=== PATIENT | male | born 1990 | race Two or more races ===

== ENCOUNTER → 2025-03-05 10:36 | Outpatient (CLI) | payer OTHER, SELFPAY | LOC: SL 10:36 | PROVIDERS: PCP Specialist; Visit Provider Specialist | DX: G47.33 Obstructive sleep apnea (adult) (pediatric) (principal) | CPT/HCPCS: G0399 ==

== ENCOUNTER 2025-04-16 13:24 | Outpatient (CLI) | payer OTHER, SELFPAY ==
--- OUTSIDE RECORDS SUMMARY | 2025-04-16 13:26 | XMS_ITS | Data Portability ---
Author Organization [facility] KELLY Matias [place] CLOSED Address [address] [place] [address] Assessment Encounter Date Assessment Date Assessment LastModified by Organization Details LastModified Time 04/30/2020 04/30/2020 SURGERY DATE: 04/30/2020 PREOPERATIVE DIAGNOSIS: Phimosis POSTOPERATIVE DIAGNOSIS: Phimosis PROCEDURE: Circumcision. ANESTHESIA: General with circumferential penile block. SURGEON: Isaac Do MD BRIEF HISTORY: The patient is a young uncircumcised gentleman who had developed an area of tight phimosis causing discomfort with erections. He also has a tethering frenulum area of the foreskin, which is uncomfortable as well. He was seen in consultation and requested circumcision. Risks were discussed including bleeding and infection. He understood and wished to proceed. OPERATIVE NOTE: After satisfactory general anesthesia, his penis and genitals were prepped and draped in standard fashion. The foreskin was brought over the glans and the penis placed on relative stretch. A circumferential jennifer was made circumferentially with a marking pen at the coronal margin. This was then retracted and a subcoronal incision made circumferentially down the subcutaneous tissue. This was then brought back over the glans and the proximal incision made circumferentially. These lines were then connected through the subcutaneous tissue with electrocautery and foreskin removed cautiously. He had an area of bleeding near the frenulum glanular side, which required some cauterization. Hemostasis was achieved and very conservative point coagulation was performed throughout the shaft of the penis as necessary for adequate hemostasis. The skin edge was then brought back together with interrupted 3-0 chromic at each quadrant and interrupted sutures placed as necessary for nice aesthetic closure circumferentially. Neosporin was applied circumferentially, 20 mL of Marcaine was placed s circumferentially at the base of the penis subcutaneously. The patient tolerated the procedure well, was awakened and transferred to postoperative recovery in stable condition. [email or web address] Not available 05/01/2020 01:17:48 Plan of Treatment Reminders Order Date Submit Date Provider Last Modified By Organization Details Last Modified Time Details Appointments None record ed. Lab urinal ysis, dipsti ck, auto 020 04/04/20 20 [facility], [address], [place], [address], 0 15:52:56 Referral None record ed. Procedures None record ed. Surgeries None record ed. Imaging None record ed. Medication Orders None record ed. Patient TargetsNo targets recorded. Patient InstructionsNo instructions recorded. Reason for Referral None Reported. Results Created Date Observation Date Name Description Value Unit Range Abnormal Flag Note LastModifiedBy Organization Detail LastModifiedTime 04/04/20 20 04/04/2020 urina lysis , dipst ick, auto Unknown Analyte Yellow Not Available [facility] [address], [place], [address], 04/04/2020 11:24:44 04/04/20 20 04/04/2020 urina lysis , dipst ick, auto Unknown Analyte Clear Not Available [facility] [address], [place], [address], 04/04/2020 11:24:44 04/04/20 20 04/04/2020 urina lysis , dipst ick, auto Unknown Analyte 1.010 Not Available [facility] [address] [facility] [address], [place], [address], 04/04/2020 11:24:44 04/04/20 20 04/04/2020 urina lysis , dipst ick, auto Unknown Analyte 6.0 Not Available [facility] [address], [place], [address], 04/04/2020 11:24:44 04/04/20 20 04/04/2020 urina lysis , dipst ick, auto Unknown Analyte Negati ve Not Available [facility] [address], [place], [address], 04/04/2020 11:24:44 04/04/20 20 04/04/2020 urina lysis , dipst ick, auto Unknown Analyte Negati ve Not Available [facility] [address], [place], [address], 04/04/2020 11:24:44 04/04/20 20 04/04/2020 urina lysis , dipst ick, auto Unknown Analyte Negtiv e Not Available [facility] [address], [place], [address], 04/04/2020 11:24:44 04/04/20 20 04/04/2020 urina lysis , dipst ick, auto Unknown Analyte Normal Not Available [facility] [address], [place], [address], 04/04/2020 11:24:44 04/04/20 20 04/04/2020 urina lysis , dipst ick, auto Unknown Analyte Negati ve Not Available [facility] [address], [place], [address], 04/04/2020 11:24:44 04/04/20 20 04/04/2020 urina lysis , dipst ick, auto Unknown Analyte Normal Not Available [facility] [address], [place], [address], 04/04/2020 11:24:44 04/04/20 20 04/04/2020 urina lysis , dipst ick, auto Unknown Analyte Negati ve Not Available [facility] [address], [place], [address], 04/04/2020 11:24:44 04/04/20 20 04/04/2020 urina lysis , dipst ick, auto Unknown Analyte Negati ve Not Available [facility] [address], [place], [address], 04/04/2020 11:24:44 04/04/20 20 04/04/2020 urina lysis , dipst ick, auto Unknown Analyte Clean Catch Not Available [facility] [address], [place], [address], 04/04/2020 11:24:44 04/04/20 20 04/04/2020 urina lysis , dipst ick, auto Unknown Analyte Automa gabbie Not Available [facility] [address], [place], [address], 04/04/2020 11:24:44 04/04/20 20 04/04/2020 urina lysis , dipst ick, auto Unknown Analyte 1.003 - 1.035 Not Available [facility] [address], [place], [address], 04/04/2020 11:24:44 04/04/20 20 04/04/2020 urina lysis , dipst ick, auto Unknown Analyte 5.0 - 8.0 Not Available [facility] [address], [place], [address], 04/04/2020 11:24:44 04/04/20 20 04/04/2020 urina lysis , dipst ick, auto Unknown Analyte Negati ve Not Available [facility] [address], [place], [address], 04/04/2020 11:24:44 04/04/2004/04/2020 urina lysis , dipst ick, auto Unknown Analyte Negati ve Not Available [facility] [address], [place], [address], 04/04/2020 11:24:44 04/04/20 20 04/04/2020 urina lysis , dipst ick, auto Unknown Analyte Negati ve - Trace Not Available [facility] [address], [place], [address], 04/04/2020 11:24:44 04/04/20 20 04/04/2020 urina lysis , dipst ick, auto Unknown Analyte Normal Not Available [facility] [address], [place], [address], 04/04/2020 11:24:44 04/04/2004/04/2020 urina lysis , dipst ick, auto Unknown Analyte Negati ve Not Available [facility] [address], [place], [address], 04/04/2020 11:24:44 04/04/20 20 04/04/2020 urina lysis , dipst ick, auto Unknown Analyte Normal - 1mg/dl Not Available [facility] [address] [facility] [address], [place], [address], 04/04/2020 11:24:44 04/04/20 20 04/04/2020 urina lysis , dipst ick, auto Unknown Analyte Negati ve Not Available [facility] [address] [facility] [address], [place], [address], 04/04/2020 11:24:44 04/04/20 20 04/04/2020 urina lysis , dipst ick, auto Unknown Analyte Negati ve Not Available [facility] [address], [place], [address], 04/04/2020 11:24:44 04/28/20 20 04/30/2020 SARS CoV 2 RNA (COVI D-19) , QL, 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 SEE SCANN ED REFER ENCE LAB REPOR T. PRINT ED REPOR T RECEI KAYDEN IN THE LABOR ATORY : 0 Not Available [facility] [address] [place], [address], 04/30/2020 10:09:21 Result Notes None recorded. Medical Equipment None Reported. Allergies No known drug allergies Medications Name Sig Start Date Stop Date Status Note LastModified by Organization Details LastModified Time clonidine HCl 0.1 mg tablet active Not Available Not Available No t Available sulfamethoxazole 800 mg-trimethoprim 160 mg tablet active Not Available Not Availabl e Not Available benzonatate 100 mg capsule active Not Available Not Available Not Available hydrocodone 7.5 mg-acetaminophen 325 mg tablet active Not Available Not Availabl e Not Available sertraline 25 mg tablet active Not Available Not Available Not Available mirtazapine 15 mg tablet active Not Available Not Available Not Available omeprazole active Not Available Not Av ailable Not Available Vitals Date Recorded Body height Body mass index (BMI) Body weight Provider Name and Address Organization Details Last Updated DateTime 04/04/2020 175.26 cm 21.4 kg/m2 42417.89 g Teena Aguirre [facility] 04/04/2020 11:23:56 Social History Question Answer Notes LastModified by Organizat ion Details LastModified Time Tobacco Smoking Status Never Smoker Teena Aguirre [facility] 04/04/2020 11:24:12 How Much Tobacco Do You Chew? None [email or web address] Information not available 04/04/2020 Marital Status Single [email or web address] Informatio n not available 04/04/2020 How Much Tobacco Do You Smoke? No [email or web address] Information not available 04/04/2020 Sex: Unknown Functional Status Question Answer Note LastModified by Organization D etails LastModified Time What is your level of alcohol consumption? None [email or web address] Information not available 04/04/2020 Mental Status None recorded. Family History Nothing Reported. Medical History Condition Response Allergies/Hayfever Y Acid Reflux (GERD) Y Past Encounters Encounter ID Performer Location Encounter Start Date Encounter Closed Date Diagnosis/Indication Diagnosis SNOMED-CT Code Diagnosis ICD10 Code Diagnosis Note [id number] ISAAC DO MD [facility] [address] [place] [address] [address] [place] [address] 04/04/2020 11:05:47 04/04/2020 11:51:39 Redundant prepuce and phimosis 677329867 N47.1 With discussed options including just incising the frenulum. Due to the tightness of the mild phimosis he is concerned that he was still having discomfort elsewhere. We had a very long discussion regarding circumcisi on. We discussed risk of bleeding and infection. We discussed convalesce nce. We discussed that likely circumcisi on wound to be the most definitive treatment for both areas of concern. He understand s and wishes to proceed. [id number] ISAAC DO MD SURGERY SCHEDULE [address] [place] [address] 04/30/2020 08:28:14 04/30/2020 08:30:05 Health Concerns Section Related Observation LastModified by Organization Detai ls LastModified Time None Recorded Concern Status LastModified by Organization Details LastModified Time None Recorded Advance Directives Directive None Recorded Payers Insurance Date Sequence Insurance Name Policy Number Policy Queen Covered Member ID Queen Member ID Guarantor Name 11/25/2022 1 [employer] [id number] Yadiel Kamara [id number] Yadiel Kamara Notes Date Note Type Note Provider Name and Address Organization Details Recorded Time 04/04/2020 text/html Patient is a you ng 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 He states that the foreskin is also circumferentially tight with erections. He has had no urinary infections. He's had no significant trauma. ISAAC DO MD [facility] [place], [address], [facility] 04/04/2020 15:53:21
[2025-04-16 13:42] VITALS: BMI 23.6
[2025-04-16 13:52] LABS: Basophils % 0.5 % (0.1-2.0); Eosinophils # 0.2 Kmm3 (0.0-0.4); Eosinophils % 2.7 % (0.1-12.0); Hemoglobin 16.2 g/dL (14.1-18.0); Immature Granulocytes # 0.01 10^3uL; Immature Granulocytes % 0.1 %; Lymphocytes # 2.9 K/mm3 (0.7-4.5); Lymphocytes % 33.5 % (10-50); Mean Corpuscular HGB Conc 33.8 g/dL (31.8-35.4); Mean Corpuscular Hemoglobin 28.7 pg (27.0-31.2); Mean Platelet Volume 9.4 fl (7.4-10.4); Monocytes # 0.7 K/mm3 (0.1-1.0); Monocytes % 8.2 % (1.7-9.3); Neutrophils # 4.7 K/mm3 (1.8-7.8); Nucleated Red Blood Cells # 0 10^3/uL; Nucleated Red Blood Cells % 0 %; Platelet Count 319 K/mm3 (142-424); Red Blood Count 5.65 M/mm3 (4.60-6.20); Red Cell Distribution Width 12.7 % (11.5-17.5); Red Cell Distribution Width-SD 39.1 fL; White Blood Count 8.5 K/mm3 (4.8-10.8)
[2025-04-16 13:58] LABS: Chloride 99 mmol/L (98-107); Potassium 4.2 mmoL/L (3.5-5.1); Sodium 138 mmol/L (136-145)
[2025-04-16 14:01] LABS: Anion Gap 14.2 mEq/L (5-15); Blood Urea Nitrogen 29 mg/dl (9-20); Carbon Dioxide 29 mmol/L (22.0-30.0); Creatinine Clearance Estimated 99 mL/min (50-200); Estimated Glomerular Filt Rate 78 ml/min (>60); GFR (African American) 94 ML/MIN (>60)
[2025-04-16 14:02] LABS: Calcium 9.1 mg/dl (8.4-10.2); Glucose 95 mg/dl (74-100)
== END 2025-04-16 23:59 | disposition home or self-care (01) ==
LOC: PREOP 13:25
PROVIDERS: Visit Provider Orthopaedic Surgery
DX: Z01.812 Encounter for preprocedural laboratory examination (principal)
CPT/HCPCS: 80048; 85025

== ENCOUNTER 2025-04-17 09:47 | Day surgery (SDC) | payer OTHER, SELFPAY ==
[2025-04-16 13:49] VITALS: BMI 23.6
[2025-04-17] VITALS (9 sets, daily range): BP systolic 116–135; BP diastolic 61–97; PULSE 75–102; RESP 14–18; TEMP 36.1–36.8; O2SAT 87–99
[2025-04-17] MEDS: LACTATED RINGERS 1000ML 1,000 ML 100 ML IV (10:18)
--- NOTE | 2025-04-17 10:23 | EXP.ANES.CKL ---
[facility] Disclaimer: The information contained in this section may have been updated after the patient was seen, as this information can be updated by other users. Medical History GERD (gastroesophageal reflux disease) Depression Hyperlipidemia Surgical History No significant past surgical history Family History Other Diabetes Hyperlipidemia Thyroid disorder Social History Smoking Status: Never smoker alcohol intake: never substance use type: denies use current occupational status: employed Travel in the last 8 weeks?: Inside the [place] marital status: single caffeine: Yes [facility] Anesthesia Checklist Patient Identification Patient Identification: Verbal (Name & ) Structural Data Admitted From: Home Planned Operative Procedure/s: excision neoplasm l hand Consent for Planned Operative Procedure(s) Verified: Yes NPO Status Verified Time NPO: 00:00 Additional verifications Anesthesia Reactions: No Hx Blood Transfusions: No Blood Transfusion Reaction: No Airway Assessment Mallampati Score:: Class II C-Spine Mobility Assessed: Yes TMJ Mobility Assessed: Yes Dentition: Good Dentition Neurological Assessment Level of Consciousness: Awake, Alert and Appropriate Anesthesia Plan Anesthesia Risk discussed: Yes Anesthesia Plan: Verified ASA Class: II Anesthesia Type: General
[2025-04-17] MEDS: LIDOCAINE 1% W/EPI 1:100,000 20ML VIAL 20 ML (10:55)
[2025-04-17] MEDS: CEFAZOLIN SODIUM 2 GM in 0.9 % SODIUM CHLORIDE 100 ML IV (10:56)
--- NOTE | 2025-04-17 11:20 | EXP.ANES.I ---
[facility] Anesthesia Record Part I Anesthesia Record I Intake, IV Amount: 500 Hydration: Adequate Estimated blood loss (mL): 0 Urine output (mL): 0 Blood Products used (#): none Blood Pressure: 117/62 SaO2: 94 Pulse Rate: 77 Airway Patency: Patent Respiratory Rate: 14 Temperature: 97.0 F Patient is:: Oral/Nasal airway, Stable and Somnolent Stable to PACU at:: 11:16
--- NOTE | 2025-04-17 11:32 | EXP.OP.NOTE ---
Date of procedure: 04/17/25 Pre-op Diagnosis:: Soft tissue mass left hand ( pyogenic granuloma) Post-op Diagnosis:: Same Procedure performed:: Excision soft tissue mass left hand Surgeon:: Nathan Wall DO SHOVEL LOG LOADER OPERATOR:: Real Dobbs Anesthesia: LMA Estimated blood loss (mL): 5 Operative findings:: Highly vascularized pyogenic granuloma Operative note:: Patient identified preoperatively. Left hand marked with a yes and my initials. Transferred operative suite placed supine on operating bed. Left upper extremity prepped and draped normal sterile fashion. Once prepped and draped final operative timeout performed to identify proper patient procedure and extremity. Everyone involved in the case agree there were no counter indications beginning did receive preoperative antibiotics. On the palm of his left hand was a soft tissue mass growing from the skin on the index palmar side of his hand. This was consistent with pyogenic granuloma it was highly vascularized I used the pickups and the bipolar cautery to remove the pyogenic granuloma. Then the edges around this were debrided and irrigated and clean the electrocautery bipolar was utilized for hemostasis. Once hemostasis obtained nylon stitches in a simple interrupted fashion were placed the tourniquet was inflated during excision for a total of 4 minutes. Tourniquet was deflated and hemostasis was confirmed sterile hand dressing placed patient waken from anesthesia taken recovery stable condition. Condition: stable Disposition: PACU Specimens:: Soft tissue mass Complications:: None apparent
--- NOTE | 2025-04-18 07:30 | EXP.ANES.II ---
[facility] Anesthesia Record Part II Anesthesia Record Part II Discharge Time: 11:46 Destination: Surgical Day Care (OP Surgery) PACU nurse assessment reviewed?: Yes Patient Condition:: Good Anesthesia Complications:: None Swallowing reflex intact?: Yes Airway Patency: Patent Cyanosis?: No Blood Pressure: 116/61 SaO2: 99 Respiratory Rate: 18 Pulse Rate: 75 Temperature: 97 F Mental Status: Alert & Oriented Pain level:: 0 Nausea and/or vomitting:: None Intake, IV Amount: 0 Hydration: Adequate
[2025-04-18 07:33] VITALS: BP 116/61; PULSE 75; RESP 18; TEMP 36.1; O2SAT 99
== END 2025-04-17 12:15 | disposition home or self-care (01) ==
PROVIDERS: PCP Family Medicine; Visit Provider Orthopaedic Surgery
PROC: (CPT 26115; principal; 2025-04-17 11:00)
DX: L98.0 Pyogenic granuloma (principal); K21.9 Gastro-esophageal reflux disease without esophagitis; E78.5 Hyperlipidemia, unspecified; F32.A Depression, unspecified; Z79.899 Other long term (current) drug therapy
CPT/HCPCS: 26115; 96374; J0690; J1100; J2003; J2004; J2250; J2405; J3010; J7120